=== PATIENT | female | born 1955 | race Caucasian/White ===

== ENCOUNTER → 2020-05-08 10:40 | Outpatient (CLI) | payer BC, SELFPAY ==
--- NOTE | 2020-05-08 10:48 | DI.RAD.S_ITS ---
PROCEDURE: XR CHEST 2V INDICATIONS: Pneumonia TECHNIQUE: 2 views of the chest were acquired. COMPARISON: [facility], CR, XR CHEST 1 VIEW, 01/02/2018, 14:42. FINDINGS: Surgical changes and devices: None. Lungs and pleura: Developing airspace disease within the right infrahilar region is present. There may also be mild airspace disease within the region of the lingula and the lateral margin of the right lung base. There is mild scarring or pleural thickening within the lung apices. No effusion or pneumothorax is appreciated. Mediastinum: Mediastinal contours are normal. Heart size is normal. Bones and chest wall: No suspicious bony abnormalities. Dextroconvex curvature of the thoracic spine is noted. Soft tissues appear unremarkable. IMPRESSION: Patchy bibasilar airspace disease is suggestive of pneumonia. In the appropriate clinical setting, early COVID-19 may have this appearance. Dictated by: Manuel Blackburn M.D. on 05/08/2020 at 12:00 Approved by: Manuel Blackburn M.D. on 05/08/2020 at 12:01
== END ==
PROVIDERS: PCP Obstetrics & Gynecology; Referring Provider Obstetrics & Gynecology; Visit Provider Obstetrics & Gynecology
DX: J18.9 Pneumonia, unspecified organism (principal)
CPT/HCPCS: 71046

== ENCOUNTER → 2023-09-23 11:55 | Outpatient (CLI) | payer MEDICARE, SELFPAY ==
--- NOTE | 2023-09-23 | DI.MG.S_ITS ---
BILATERAL DIGITAL SCREENING MAMMOGRAM 3D/2D WITH CAD: 09/23/2023 CLINICAL: Routine screening. Family history of breast cancer. Comparison is made to exams dated: 01/22/2021 mammogram and 02/03/2017 mammogram - Outside facility. Both breasts are heterogeneously dense, which may obscure small masses (category c / 51-75% glandular tissue). Current study was also evaluated with a Computer Aided Detection (CAD) system. There are benign vascular calcifications in the left breast. No significant masses, calcifications, or other findings are seen in either breast. There has been no significant interval change. IMPRESSION: BENIGN There is no mammographic evidence of malignancy. A 1 year screening mammogram is recommended. Based on the Tyrer Cuzick model (a risk assessment model) the patient's lifetime risk is 6.6% and her 10 year risk is 4.2%. According to the ACR, ACS, and NCCN guidelines, an annual breast MRI exam along with mammogram is recommended if the patient's lifetime risk is 20% or greater. This exam was interpreted at Station ID: [id number]. NOTE: For mammograms, a report in lay terms will be sent to the patient. Approximately 15% of breast malignancies will not be visualized mammographically. In the management of a palpable breast mass, a negative mammogram must not discourage biopsy of a clinically suspicious lesion. Electronically Signed By: Hermes dickey/deonte:09/23/2023 15:00:34 letter sent: Normal Exam ACR BI-RADS Category 2: Benign Finding(s) 3342F
== END ==
PROVIDERS: PCP Registered Nurse; Referring Provider Registered Nurse; Visit Provider Registered Nurse
DX: Z12.31 Encounter for screening mammogram for malignant neoplasm of breast (principal); Z80.3 Family history of malignant neoplasm of breast
CPT/HCPCS: 77063; 77067

== ENCOUNTER 2023-11-25 20:50 | Emergency (ER) | payer MEDICARE, SELFPAY ==
[2023-11-25] VITALS (10 sets, daily range): BP systolic 141–193; BP diastolic 67–100; PULSE 84–101; RESP 18–22; TEMP 36.7; O2SAT 92–96; BMI 22.6
--- NOTE | 2023-11-25 21:07 | DI.CT.S_ITS ---
PROCEDURE: CT KIDNEY URETER BLADDER (KUB) INDICATIONS: flank pain, hematuria TECHNIQUE: Axial sections were acquired from the lung bases to the pubic symphysis. Coronal and sagittal reformats were performed. For radiation dose reduction, the following was used: automated exposure control, adjustment of mA and/or kV according to patient size. COMPARISON: None. FINDINGS: Image quality: Diagnostic. Lower Chest: Bilateral lower lobe subpleural septal thickening and pulmonary fibrosis. Small hiatal hernia. Mild pectus excavatum. URINARY: Right Kidney and ureter: No stones. No hydronephrosis or hydroureter. Left Kidney and ureter: There is a 2 mm stone at the right ureterovesical junction causing moderate left hydronephrosis and moderate perinephric stranding. There is mild hydroureter. Bladder: Normal wall thickness. No stones. ABDOMEN: Liver: No contour-deforming solid mass. Gallbladder: Surgically absent. Biliary ducts: No biliary dilation. Pancreas: No ductal dilation. Spleen: Size is within normal limits. Adrenal Glands: No adrenal nodules. Stomach and Bowel: Normal colonic caliber, without significant wall thickening. Peritoneum: No abnormal intraperitoneal fluid. No free air. Ventral Wall: No hernia. Abdominal Nodes: No enlarged retroperitoneal or mesenteric lymph nodes. Vessels: Aorta and inferior vena cava are normal in size. PELVIS: Pelvic Organs: Uterus is not visualized, consistent with hysterectomy no pathological free-fluid in pelvis. Pelvic Nodes: Unremarkable. Miscellaneous: No inguinal hernias are seen. Bones: There are several densely sclerotic foci in sacrum, probably bone islands. Grade 1 anterolisthesis of L5 on S1. Severe degenerative disc and facet disease at L5-S1. A prominent Schmorl's node is noted in the superior endplate of L1. IMPRESSION: 1. A 2 mm obstructive stone at the left UVJ causing moderate hydronephrosis and perinephric stranding. 2. Bilateral subpleural septal thickening and pulmonary fibrosis in lower lobes. 3. Small hiatal hernia. 4. Severe degenerative disc and facet disease at L5-S1. There is grade 1 anterolisthesis of L5 on S1. Dictated by: Gianni Mooney M.D. on 11/25/2023 at 22:40 Approved by: Gianni Mooney M.D. on 11/25/2023 at 22:47
[2023-11-25 21:15] LABS: Add Manual Diff / Slide Review NO; Basophils Absolute Auto 100 /uL (0-100); Basophils Percent Auto 0.6 % (0-2); Eosinophils Absolute Auto 100 /uL (0-450); Eosinophils Percent Auto 0.4 % (2-4); Hematocrit 37.7 % (36-46); Hemoglobin 12.4 g/dL (12.0-16.0); Lymphocytes Absolute Auto 2200 /uL (1100-4500); Lymphocytes Percent Auto 16.6 % (25-40); Mean Corpuscular HGB Conc 32.9 % (30-36); Mean Corpuscular Hemoglobin 29.2 PG (26-34); Mean Corpuscular Volume 88.6 fL (80-100); Monocytes Absolute Auto 1200 /uL (0-900); Monocytes Percent Auto 8.8 % (3-14); Neutrophils Absolute Auto 9700 /uL (1500-7000); Neutrophils Percent Auto 73.6 % (50-75); Platelet Count 297 X10^3/uL (150-400); Red Blood Cell Count 4.26 X10^6/uL (4.0-5.2); Red Cell Distribution Width 15.3 % (11.6-14.8); White Blood Cell Count 13.2 X10^3/uL (4.5-11.0)
[2023-11-25] MEDS: KETOROLAC 30 MG/ML VIAL 15 MG IV (21:18)
[2023-11-25] MEDS: LACTATED RINGERS 1,000 ML 1000 ML IV (21:19)
[2023-11-25 21:22] LABS: Alanine Aminotransferase 42 IU/L (<35); Albumin 4.1 g/dL (3.5-5.0); Albumin Globulin Ratio 1.3 (1.0-2.8); Alkaline Phosphatase 97 U/L (38-126); Aspartate Aminotransferase 38 IU/L (14-36); BUN Creatinine Ratio 24.8 (6-22); Bilirubin Total 0.5 mg/dL (0.2-1.3); Blood Urea Nitrogen 26 mg/dL (7-17); Carbon Dioxide 25 mmol/L (22-32); Chloride 104 mmol/L (98-107); Estimated Glomerular Filt Rate 57 mL/min (>60); Globulin 3.1 g/dL (1.7-4.1); Glucose 109 mg/dL (80-110); HEMOLYSIS < 15 (0-50); Potassium 3.4 mmol/L (3.4-5.1); Sodium 139 mmol/L (137-145); Total Protein 7.2 g/dL (6.3-8.2)
--- NOTE | 2023-11-25 21:31 | ED_ITS ---
HPI - Female Genitourinary General Chief complaint: Urogenital-Female Stated complaint: is in pain Time Seen by Provider: 11/25/23 21:05 Source: patient and family Mode of arrival: Ambulatory History of Present Illness HPI Narrative: 68F without significant chronic medical history presents with her in the chief complaint of painless hematuria off and on for the past few days but then a relatively sudden onset left lower quadrant pain this afternoon and evening. The pain radiates around her left flank. She states that she has some level of discomfort constantly but there are episodes where the pain becomes quite severe without obvious provocation or palliation. She denies fever or chills. She has been nauseated but denies any vomiting. Related Data Previous Rx's Medication Instructions Recorded cephalexin 500 mg capsule 500 mg PO Q6H 7 days #28 caps 11/25/23 hydrocodone 5 mg-acetaminophen 325 1 tab PO Q4-6H PRN pain #10 tabs 11/25/23 mg tablet ketorolac 10 mg tablet 10 mg PO Q6H PRN pain #14 tabs 11/25/23 ondansetron 4 mg disintegrating 4 mg PO TID-QID PRN nausea and 11/25/23 tablet vomiting #10 tabs tamsulosin 0.4 mg capsule (Flomax) 0.4 mg PO DAILY #30 caps 11/25/23 Allergies Allergy/AdvReac Type Severity Reaction Status Date / Time codeine Allergy Verified 11/25/23 21:18 duloxetine Allergy Verified 11/25/23 21:35 lisinopril Allergy Verified 11/25/23 21:35 meperidine [From Demerol] Allergy Verified 11/25/23 21:18 morphine Allergy Verified 11/25/23 21:18 nefazodone Allergy Hives Verified 11/25/23 21:35 promethazine Allergy Verified 11/25/23 21:18 sertraline Allergy Verified 11/25/23 21:35 Review of Systems Review of Systems Narrative: GENERAL: Denies chills, fatigue, malaise, fever, sweats. HEENT: Denies sinus pain, ear pain, sore throat, difficulty swallowing, dizziness. RESPIRATORY: Denies dyspnea, cough, wheezing, hemoptysis, sputum. CARDIOVASCULAR: Denies chest pain, palpitations, orthopnea, edema, GASTROINTESTINAL: Denies nausea, vomiting, abdominal pain, diarrhea, constipation, melena. : See HPI MUSCULOSKELETAL: denies weakness, joint pain, or bony pain SKIN: Denies rash, skin lesions, or other NEUROLOGIC: Denies weakness, headache, numbness, change in speech, confusion, seizures, incoordination. PSYCHIATRIC: No concerning psychosocial issues. 12 point review of systems is negative except for those stated above Patient History Last Alcoholic Drink: does not drink Substance Use Type: does not use Exam Narrative Exam Narrative: GENERAL: [68] year old patient appears stated age. Well-developed patient, in obvious distress, pacing, unable to find a position of comfort HEAD: Atraumatic. Normocephalic. EYES: Pupils equal round and reactive. Extraocular motions intact. No scleral icterus. No injection or drainage. ENT: Nose without bleeding, purulent drainage. Throat without erythema, tonsillar hypertrophy or exudate. Airway patent. NECK: Trachea midline. Non tender CARDIOVASCULAR: Regular rate and rhythm without murmurs, gallops, or rubs. RESPIRATORY: Clear to auscultation. Breath sounds equal bilaterally. No wheezes, rales, or rhonchi. GASTROINTESTINAL: Abdomen soft, non-tender, nondistended. EXTREMITIES: No edema or joint tenderness. BACK: Nontender without deformity or crepitance. No flank tenderness. NEURO: AOx3. SKIN: No rash or erythema of visible areas Initial Vital Signs Initial Vital Signs: Vital Signs Temperature 98.1 F 11/25/23 20:56 Pulse Rate 95 H 11/25/23 20:56 Respiratory Rate 22 11/25/23 20:56 Blood Pressure 193/88 H 11/25/23 20:56 Pulse Oximetry 95 11/25/23 20:56 Oxygen Delivery Method Room Air 11/25/23 20:56 Course Orders Ordered: ED Orders 11/25/23 21:00 Urine Culture Stat Urine Microscopic Stat 11/25/23 21:04 Complete Blood Count AUTO DIFF Stat Comprehensive Metabolic Panel Stat 11/25/23 21:07 CT kidney ureter bladder (KUB) Stat Discontinued Medications Hydrocodone Bitart/Acetaminophen (Hydrocodone/Acet 5/325 Prepack) 1 bottle MISC NOW ONE Stop: 11/25/23 23:04 Last Admin: 11/25/23 23:32 Dose: 1 bottle Documented By: CATHY Lactated Ringer's (Lactated Ringers) 1,000 mls @ 1,000 mls/hr IV BOLUS ONE Stop: 11/25/23 22:06 Last Infusion: 11/25/23 22:08 Dose: Infused Documented By: Admin: 11/25/23 21:19 Dose: 1,000 mls/hr Documented By: DOMINIC Ketorolac Tromethamine (Ketorolac 30 Mg/Ml Vial) 15 mg IV NOW ONE Stop: 11/25/23 21:08 Last Admin: 11/25/23 21:18 Dose: 15 mg Documented By: DOMINIC Ondansetron HCl (Ondansetron 4 Mg Odt Prepack) 1 bottle MISC NOW ONE Stop: 11/25/23 23:04 Last Admin: 11/25/23 23:34 Dose: 1 bottle Documented By: CATHY Vital Signs Vital signs: Vital Signs - 8 hr 11/25/23 20:56 11/25/23 20:59 11/25/23 21:00 Temperature 98.1 F Pulse Rate 95 H 101 H 97 H Respiratory Rate 22 Blood Pressure 193/88 H Pulse Oximetry 95 94 96 Oxygen Delivery Method Room Air Room Air Room Air 11/25/23 21:04 11/25/23 21:04 11/25/23 21:30 Temperature Pulse Rate 98 H 97 H Respiratory Rate 22 Blood Pressure 193/88 H Pulse Oximetry 94 93 Oxygen Delivery Method Room Air Room Air 11/25/23 21:30 11/25/23 21:39 11/25/23 21:39 Temperature Pulse Rate 90 Respiratory Rate Blood Pressure 164/100 H 170/68 H Pulse Oximetry 94 Oxygen Delivery Method 11/25/23 22:00 11/25/23 22:00 11/25/23 22:32 Temperature Pulse Rate 87 86 Respiratory Rate 18 Blood Pressure 152/68 H Pulse Oximetry 93 92 Oxygen Delivery Method 11/25/23 22:33 11/25/23 22:33 11/25/23 23:00 Temperature Pulse Rate 84 87 Respiratory Rate 20 18 Blood Pressure 141/67 H Pulse Oximetry 93 95 Oxygen Delivery Method Room Air MDM - Female Genitourinary Lab Data 11/25/23 21:04 11/25/23 21:04 Labs: Lab Results 11/25/23 11/25/23 Range/Units 21:00 21:04 WBC 13.2 H (4.5-11.0) X10^3/uL RBC 4.26 (4.0-5.2) X10^6/uL Hgb 12.4 (12.0-16.0) g/dL Hct 37.7 (36-46) % MCV 88.6 (80-100) fL MCH 29.2 (26-34) PG MCHC 32.9 (30-36) % RDW 15.3 H (11.6-14.8) % Plt Count 297 (150-400) X10^3/uL Neut % (Auto) 73.6 (50-75) % Lymph % (Auto) 16.6 L (25-40) % [place] % (Auto) 8.8 (3-14) % Eos % (Auto) 0.4 L (2-4) % Baso % (Auto) 0.6 (0-2) % Neut # (Auto) 9700 H (1243-0407) /uL Lymph # (Auto) 2200 (4578-0402) /uL [place] # (Auto) 1200 H (0-900) /uL Eos # (Auto) 100 (0-450) /uL Baso # (Auto) 100 (0-100) /uL Sodium 139 (137-145) mmol/L Potassium 3.4 (3.4-5.1) mmol/L Chloride 104 (98-107) mmol/L Carbon Dioxide 25 (22-32) mmol/L BUN 26 H (7-17) mg/dL Creatinine 1.05 H (0.52-1.04) mg/dL Estimated GFR 57 L (>60) mL/min BUN/Creatinine Ratio 24.8 H (6-22) Glucose 109 (80-110) mg/dL Calcium 11.0 H (8.4-10.2) mg/dL Total Bilirubin 0.5 (0.2-1.3) mg/dL AST 38 H (14-36) IU/L ALT 42 H (<35) IU/L Alkaline Phosphatase 97 (38-126) U/L Total Protein 7.2 (6.3-8.2) g/dL Albumin 4.1 (3.5-5.0) g/dL Globulin 3.1 (1.7-4.1) g/dL Albumin/Globulin Ratio 1.3 (1.0-2.8) Urine RBC 30-100/hpf H (0-5/HPF) Urine WBC 5-10/hpf H (0-5/HPF) Ur Squamous Epith Cells 0-1 /hpf (0-5/HPF) Uric Acid Crystals Few H (None) Urine Bacteria Moderate (10-30) H (None) Vol Urine Centrifuged 10ml (spun) Urine Dip Bedside Urine Glucose Negative Bedside Urine Bilirubin - Negative Bedside Urine Ketone - Negative Urine Specific [place] 1.030 Bedside Urine Occult Blood +++ Bedside Urine pH 6.0 Bedside Urine Protein +/- 15 Bedside Urine Urobilinogen - Negative Bedside Urine Nitrite - Negative Bedside Urine Leukocytes - Negative Esterase MDM Narrative Medical decision making narrative: [68] year old patient presents with left flank pain and hematuria Multiple etiologies for patient's symptoms considered including, but not limited to: [Kidney stone versus UTI versus other Prior Charts reviewed in our EMR Primary Historian: patient Labs reviewed and interpreted by myself: White blood cells 13.2, no left shift, no anemia, no significant abnormalities in electrolytes or renal function, 30- 100 red blood cells, 5-10 white blood cells, moderate bacteria Imaging reviewed: CT KUB demonstrates 2 mm obstructing stone at the left UVJ with moderate hydronephrosis and perinephric stranding Patient's symptoms improved over duration of stay with above-stated therapies. She shows no signs of sepsis, no signs of renal failure and is tolerating orals. Given her white count, perinephric stranding and subtle elevation of white blood cells in the urine she is given antibiotics typical kidney stone medication Findings and discharge diagnosis discussed with patient/family followed by verbalization of understanding Return precautions discussed with patient/family whom verbalize understanding of diagnosis and plan Discharge Plan Departure Patient Disposition: Home Clinical Impression: Kidney calculi Instructions: DI for Kidney Stones Activity Restrictions/Additional Instructions: *You have been diagnosed with [2 mm left-sided kidney stone] *What to do: *Please continue to take your regular medications as directed. [x ] New medication prescriptions sent to your pharmacy: [[facility]] [ ] New medication written as a paper prescription [ ] No new medications given *Please follow up with your primary care provider in 2-3 days, call for an appointment. Let them know you were seen in the Emergency Department and that we ask that you be seen in follow up. We will electronically transmit a record of today's note if your PCP is in our system. Also, I have included the contact info for the local urology clinic. *Return to Emergency Department if you should have any new, worsening or concerning symptoms, such as [fever greater than 101 F, shaking chills, worsening pain, persistent vomiting or other bothersome symptoms] Prescriptions: New hydrocodone-acetaminophen 5-325 mg tablet 1 tab PO Q4-6H PRN (Reason: pain) Qty: 10 0RF ketorolac 10 mg tablet 10 mg PO Q6H PRN (Reason: pain) Qty: 14 0RF tamsulosin [Flomax] 0.4 mg capsule 0.4 mg PO DAILY Qty: 30 0RF cephalexin 500 mg capsule 500 mg PO Q6H 7 Days Qty: 28 0RF ondansetron 4 mg tablet,disintegrating 4 mg PO TID-QID PRN (Reason: nausea and vomiting) Qty: 10 0RF Referrals: Vida Zhu ARNP [Primary Care Provider] - See Harkins MD [Physician] - Stand Alone Forms: Patient Portal/API
[2023-11-25 21:32] LABS: Urine Volume 10mL (spun)
[2023-11-25 21:41] LABS: Bacteria Urine Moderate (10-30); RBC Urine 30-100/HPF (0-5/HPF); WBC Urine 5-10/HPF (0-5/HPF)
[2023-11-25 21:42] LABS: Squamous Epithelial Cell Urine 0-1 /HPF (0-5/HPF); Uric Acid Crystals Urine Few
[2023-11-25] MEDS: HYDROCODONE/ACET 5/325 PREPACK 1 BOTTLE MISC (23:32)
[2023-11-25] MEDS: ONDANSETRON 4 MG ODT PREPACK 1 BOTTLE MISC (23:34)
== END 2023-11-25 23:39 | disposition home or self-care (01) ==
PROVIDERS: Emergency Provider Emergency Medicine; PCP Registered Nurse
DX: N20.0 Calculus of kidney (principal)
CPT/HCPCS: 36415; 74176; 80053; 81003; 81015; 85025; 87086; 96361; 96374; 99284; J1885